=== PATIENT | female | born 1930 | race Caucasian/White ===

== ENCOUNTER 2016-04-29 10:23 | Outpatient (CLI) | payer MEDICARE, OTHER | END 2016-04-29 10:24 | disposition home or self-care (01) | DX: R19.7 Diarrhea, unspecified (principal); M54.9 Dorsalgia, unspecified; R10.9 Unspecified abdominal pain ==

== ENCOUNTER 2016-09-11 17:02 | Outpatient (CLI) | payer MEDICARE, OTHER ==
--- NOTE | 2016-09-12 16:31 | Ultrasound Report ---
EXAM: Bilateral Lower Extremity Arterial Doppler Ultrasound EXAM DATE: 09/11/2016 06:37 PM. CLINICAL HISTORY: Decreased sensation with coldness in both feet. Patient has hyperlipidemia. COMPARISON: None. TECHNIQUE: Real-time sonographic vascular imaging was performed by the environmental conflict manager, utilizing color-f low, Doppler flow, and spectral analysis. Multiple architectural representative static images were saved for review . FINDINGS: Velocity measurements suggest 50-75% stenoses of the bilateral superficial femoral arteries . Right Lower Extremity: PROSTHETIC LAB TECHNICIAN: PSV 140 cm/sec. Biphasic waveform. PSFA: PSV 170 cm/sec. Biphasic waveform. MSFA: PSV 59 cm/sec. Biphasic waveform. DSFA: PSV 151 cm/sec. Biphasic waveform. PFA: PSV 101 cm/sec. Biphasic waveform. POP: PSV 123 cm/sec. Biphasic waveform. EFFIE: PSV 52 cm/sec. Biphasic waveform. AGILITY INSTRUCTOR: PSV 22 cm/sec Biphasic waveform. YEIMI: PSV 14 cm/sec. Biphasic waveform. DPA: PSV 71 cm/sec. Biphasic waveform. Left Lower Extremity: PROSTHETIC LAB TECHNICIAN: PSV 109 cm/sec. Biphasic waveform. PSFA: PSV 72 cm/sec. Biphasic waveform. MSFA: PSV 35 cm/sec. Biphasic waveform. DSFA: PSV 201 cm/sec. Monophasic waveform. PFA: PSV 120 cm/sec. Biphasic waveform. POP: PSV 60 cm/sec. Biphasic waveform. EFFIE: PSV 24 cm/sec. Monophasic waveform. AGILITY INSTRUCTOR: PSV 19 cm/sec Monophasic waveform. YEIMI: PSV 11 cm/sec. Monophasic waveform. DPA: PSV 60 cm/sec. Monophasic waveform. Incidentally noted are large right and small left popliteal cysts in the posterior knees. IMPRESSION: 1. Mildly decreased velocities in the bilateral posterior tibial and peroneal arteries. 2. 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 [facility] Referring Provider Line: [phone] SITE ID: [id number]
== END 2016-09-11 17:03 | disposition home or self-care (01) ==
LOC: DI 17:02
PROVIDERS: ATTEND Family Medicine
DX: I70.203 Unspecified atherosclerosis of native arteries of extremities, bilateral legs (principal)
CPT/HCPCS: 93925

== ENCOUNTER 2016-10-16 09:38 | Outpatient (CLI) | payer MEDICARE, OTHER ==
[2016-10-16] MEDS ORDERED: IOPAMIDOL-300 100 ML VIAL IVP ONE (11:36)
[2016-10-16] MEDS ORDERED: IOPAMIDOL-300 50 ML VIAL PO ONE (11:36)
--- NOTE | 2016-10-16 14:14 | CT Report ---
CT OF THE ABDOMEN AND PELVIS WITH CONTRAST: 10/16/2016 CLINICAL INDICATION: Recurrent liposarcoma. COMPARISON: 12/27/2015. TECHNIQUE: Axial CT images of the abdomen and pelvis were obtained with 100 mL of Isovue-300 intraven ously as well as oral contrast. FINDINGS: Limited evaluation of the lung bases demonstrates minimal atelectasis. ABDOMEN: The heterogeneous fat and soft tissue mass in the right flank persists, measuring approximat shahzad 16 cm craniocaudal by 11 cm AP by 5 cm transverse. It again demonstrates nodular enhancement, yusra ecially along its medial margin and superior margin. The liver, spleen, pancreas and adrenal glands a ppear unremarkable. The kidneys demonstrate cortical cysts. The gallbladder is not dilated. No bowel dilatation, free gas, or free fluid is present. No abdominal adenopathy is seen. PELVIS: Postoperative changes of hysterectomy are present. Extensive diverticulosis is again seen, wi thout CT evidence of diverticulitis. No pelvic adenopathy or free fluid is present. The osseous structures demonstrate degenerative changes. IMPRESSION: SLIGHT INTERVAL INCREASE IN SIZE OF LIKELY RECURRENT LIPOSARCOMA IN THE RIGHT LATERAL AB DOMINAL WALL, NOW MEASURING 16 X 11 X 5 CM (PREVIOUSLY 15 X 11 X 4 CM AT A SIMILAR LEVEL). In accordance with CT protocol optimization, one or more of the following dose reduction techniques w ere utilized for this exam: automated exposure control, adjustment of mA and/or KV based on patient size, or use of iterative reconstructive technique. JOB #: [id number] EXT JOB #:[id number]
== END 2016-10-16 09:39 | disposition home or self-care (01) ==
LOC: LAB 09:38
PROVIDERS: ATTEND Radiology Radiation Oncology
DX: C76.8 Malignant neoplasm of other specified ill-defined sites (principal)
CPT/HCPCS: 36415; 74177; 82565; Q9967

== ENCOUNTER 2016-10-24 13:36 | Outpatient (CLI) | payer MEDICARE, OTHER | END 2016-10-24 13:37 | disposition critical access hospital (66) | LOC: EMS 13:36 | PROVIDERS: ATTEND Surgery | DX: R10.9 Unspecified abdominal pain (principal); R19.7 Diarrhea, unspecified; R11.0 Nausea | CPT/HCPCS: A0425; A0427 ==

== ENCOUNTER 2016-10-24 13:53 | Emergency (ER) | payer MEDICARE, OTHER ==
[2016-10-24] MEDS ORDERED: SODIUM CHLORIDE 0.9% 1,000 ML IV ONE ×2 (14:14→17:18)
[2016-10-24] MEDS ORDERED: ONDANSETRON 4 MG/2 ML VIAL IVP STA (14:14)
[2016-10-24 14:38] LABS: BASOPHILS # (AUTO) 0.3 10^3/uL (0.0-0.1); BASOPHILS % (AUTO) 3.6 %; EOSINOPHILS % (AUTO) 0.2 %; HCT - HEMATOCRIT 43.9 % (37.0-47.0); HGB - HEMOGLOBIN 14.5 g/dL (12.0-16.0); LYMPHOCYTES # (AUTO) 0.2 10^3/uL (1.5-3.5); LYMPHOCYTES % (AUTO) 2.8 %; MEAN CORPUSCULAR HEMOGLOBIN 28.5 pg (27.0-31.0); MEAN CORPUSCULAR HGB CONC 33.1 g/dL (32.0-36.0); MEAN CORPUSCULAR VOLUME 86.2 fL (81.0-99.0); MEAN PLATELET VOLUME 8.1 fL (7.9-10.8); MONOCYTES # (AUTO) 0.1 10^3/uL (0.0-1.0); MONOCYTES % (AUTO) 0.9 %; NEUTROPHILS # (AUTO) 7.1 10^3/uL (1.5-6.6); NEUTROPHILS % (AUTO) 92.5 %; RED BLOOD COUNT 5.09 10^6/uL (4.20-5.40); RED CELL DISTRIBUTION WIDTH 15.4 % (12.0-15.0); UNCORRECTED WHITE BLOOD COUNT 7.7 x10^3/uL; WHITE BLOOD COUNT 7.7 x10^3/uL (4.8-10.8)
[2016-10-24 14:46] LABS: ALBUMIN/GLOBULIN RATIO 1.6 (1.0-2.2); BILIRUBIN,TOTAL 0.9 mg/dL (0.2-1.0); CALCIUM 10.6 mg/dL (8.5-10.3); CREATININE 1.1 mg/dL (0.4-1.0); POTASSIUM 4.6 mmol/L (3.5-5.0); TOTAL PROTEIN 7.4 g/dL (6.7-8.2)
[2016-10-24] MEDS ORDERED: ONDANSETRON 4 MG/2 ML VIAL ONE (15:24)
[2016-10-24 17:11] LABS: BILIRUBIN,URINE NEGATIVE (NEGATIVE)
[2016-10-24 17:16] LABS: UA w/ MICROSCOPIC CHARGE YES
[2016-10-24 17:21] LABS: UR CULTURE IF IND INDICATED
[2016-10-24] MEDS ORDERED: cefTRIAXone 1 GM in SODIUM CHLORIDE 0.9% MINIBAG 100 ML IV STA (17:25)
[2016-10-24] MEDS ORDERED: cefTRIAXone 1 GM VIAL ONE (17:26)
--- NOTE | 2016-10-24 18:20 | ED Physician Documentation ---
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 She has developed some constipation and today she used some milk of magnesia. This caused major diarrhea continued for hours this morning. The patient has become weak and has called 911. Review of Systems Constitutional: reports: Myalgias, Fatigue. denies: Fever Eyes: denies: Decreased vision Ears: denies: Ear pain Nose: denies: Congestion Throat: denies: Sore throat Cardiac: denies: Chest pain / pressure Respiratory: denies: Dyspnea, Cough GI: reports: Abdominal Pain, Nausea, Diarrhea : denies: Dysuria, Frequency Skin: denies: Rash Musculoskeletal: reports: Back pain. denies: Neck pain Neurologic: reports: Generalized weakness. 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 - Present Medications Home Medications: Ambulatory Orders Medication Instructions Recorded Confirmed Biotin 1 cap PO DAILY 12/27/15 12/27/15 Cholecalciferol (Vitamin D3) 2,000 unit PO DAILY 12/27/15 12/27/15 [Vitamin D3] Hydrocodone/Acetaminophen [Vicodin 1 tab PO Q6HR PRN 12/27/15 12/27/15 5-300 mg Tablet] Ibuprofen [Advil] 1 tab PO QPM PRN 12/27/15 12/27/15 Latanoprost 0.005% Ophth Drops 1 drop EACHEYE DAILY 12/27/15 12/27/15 [Xalatan Ophth Drops] Multivitamin [Multivitamins] 1 tab PO DAILY 12/27/15 12/27/15 [place]-3/Dha/Epa/Fish Oil [Fish Oil 1 cap PO DAILY 12/27/15 12/27/15 Conc 1,000 mg Softgel] Timolol 0.5% Ophth Drops [Timoptic 1 drop EACHEYE QID 12/27/15 12/27/15 0.5% Ophth Drops] Ciprofloxacin HCl [Cipro] 500 mg PO BID #14 tablet 10/24/16 - Allergies Allergies/Adverse Reactions: Allergies Allergy/AdvReac Type Severity Reaction Status Date / Time codeine [Codeine] Allergy Intermediate Nausea Verified 12/27/15 20:04 acetazolamide Allergy Mild Hallucinati Verified 12/27/15 20:04 [From Diamox Sequels] ons povidone-iodine Allergy Mild Rash Verified 12/27/15 20:04 [From Betadine] soap * [From Betadine] Allergy Mild Rash Verified 12/27/15 20:04 chlorhexidine Allergy Unknown Rash Verified 12/27/15 20:04 Sulfa (Sulfonamide Allergy Unknown Rash Verified 12/27/15 20:04 Antibiotics) cephalexin monohydrate * Allergy Rash Verified 12/27/15 20:04 [From Keflex] oxycodone AdvReac Hallucinati Verified 12/27/15 20:04 ons - Social History Does the pt smoke?: No Smoking Status: Never smoker Does the pt drink ETOH?: Yes Does the pt have substance abuse?: No - Immunizations Immunizations are current?: No Immunizations: TDAP >10years/unknown - POLST Patient has POLST: Yes POLST Status: DNR PD ED PE NORMAL - Vitals Vital signs reviewed: Yes (Hypertensive) - General General: No acute distress, Well developed/nourished - HEENT HEENT: Atraumatic, PERRL, EOMI - Neck Neck: Supple, no meningeal sign, No bony TTP - Cardiac Cardiac: RRR, No murmur - Respiratory Respiratory: No respiratory distress, Clear bilaterally - Abdomen Abdomen: Soft, Other (There is a mass in the right abdominal abdomen that is palpable and is mildly tender the overlying skin appears radiation burned. There is no specific tenderness otherwise.) - Back Back: No CVA TTP, No spinal TTP - Derm Derm: Normal color, Warm and dry, No rash - Extremities Extremities: No deformity, No edema - Neuro Neuro: No motor deficit, No sensory deficit - Psych Psych: Normal mood, Normal affect Results - Vitals Vitals: Vital Signs - 24 hr 10/24/16 10/24/16 13:57 16:49 Temperature 36.3 C L Heart Rate 82 80 Respiratory 18 20 Rate Blood Pressure 162/84 H 158/85 H O2 Saturation 97 96 Oxygen O2 Source [Without Activity] Room air O2 Source Room air - Labs Labs: Laboratory Tests 10/24/16 10/24/16 10/24/16 14:15 14:15 14:15 WBC 7.7 RBC 5.09 Hgb 14.5 Hct 43.9 MCV 86.2 MCH 28.5 MCHC 33.1 RDW 15.4 H Plt Count 203 MPV 8.1 Neut # 7.1 H Lymph # 0.2 L [place] # 0.1 Eos # 0.0 Baso # 0.3 H Absolute Nucleated RBC 0.00 Nucleated RBCs 0.0 Sodium 137 Potassium 4.6 Chloride 100 L Carbon Dioxide 28 Anion Gap 9.0 BUN 32 H Creatinine 1.1 H Estimated GFR (MDRD) 47 L Glucose 121 H Calcium 10.6 H Total Bilirubin 0.9 AST 28 ALT 25 Alkaline Phosphatase 85 Troponin I < 0.04 Total Protein 7.4 Albumin 4.5 Globulin 2.9 Albumin/Globulin Ratio 1.6 Lipase 38 Urine Color Urine Clarity Urine pH Ur Specific [place] Urine Protein Urine Glucose (UA) Urine Ketones Urine Occult Blood Urine Nitrite Urine Bilirubin Urine Urobilinogen Ur Leukocyte Esterase Urine RBC Urine WBC Ur Squamous Epith Cells Urine Bacteria Ur Microscopic Review Urine Culture Comments 10/24/16 17:04 WBC RBC Hgb Hct MCV MCH MCHC RDW Plt Count MPV Neut # Lymph # [place] # Eos # Baso # Absolute Nucleated RBC Nucleated RBCs Sodium Potassium Chloride Carbon Dioxide Anion Gap BUN Creatinine Estimated GFR (MDRD) Glucose Calcium Total Bilirubin AST ALT Alkaline Phosphatase Troponin I Total Protein Albumin Globulin Albumin/Globulin Ratio Lipase Urine Color YELLOW Urine Clarity HAZY Urine pH 7.0 Ur Specific [place] 1.010 Urine Protein NEGATIVE Urine Glucose (UA) NEGATIVE Urine Ketones NEGATIVE Urine Occult Blood MODERATE H Urine Nitrite NEGATIVE Urine Bilirubin NEGATIVE Urine Urobilinogen 0.2 (NORMAL) Ur Leukocyte Esterase SMALL H Urine RBC 6-10 H Urine WBC 11-25 H Ur Squamous Epith Cells NONE SEEN Urine Bacteria Few Ur Microscopic Review INDICATED Urine Culture Comments INDICATED Procedures - IVC sono (time) 1410 Bedside IVC sono: IVC measures (cm) (0.83), IVC collapsed c insp (cm) (complete) , Dehydration PD MEDICAL DECISION MAKING - ED course Complexity details: reviewed old records, reviewed results, re-evaluated patient , considered differential, d/w patient, d/w family ED course: 85-year-old female being treated for an abdominal sarcoma with radiation therapy has developed constipation related to her narcotic pain reliever which she has now stopped and she has developed diarrhea related to treatment for the constipation with milk of magnesia. She arrived to the emergency department dehydrated and intravenous saline was begun and the urine was collected this demonstrated what appeared to be infection and the patient was given a gram of Rocephin intravenously as well.She does feel that she is strong enough to be able to control herself at home and be able to get up from her bed by herself and to her bathroom. Her son will be visiting her tomorrow. Departure - Departure Disposition: 01 Home, Self Care Clinical Impression: Dehydration UTI (urinary tract infection) Qualifiers: Urinary tract infection type: acute cystitis Hematuria presence: without hematuria Qualified Code(s): N30.00 - Acute cystitis without hematuria Diarrhea Qualifiers: Diarrhea type: unspecified type Qualified Code(s): R19.7 - Diarrhea, unspecified Condition: Stable Instructions: ED Dehydration, ED UTI Cystitis Female, ED Diet Vomiting Diarrhea Follow-Up: Vickey Roach DO [Primary Care Provider] - Prescriptions: Ciprofloxacin HCl [Cipro] 500 mg PO BID #14 tablet
[2016-10-24 18:54] VITALS: BP 144/84
== END 2016-10-24 18:52 | disposition home or self-care (01) ==
LOC: EDUNIT# → ED 13:53
DX: E86.0 Dehydration (principal); N30.00 Acute cystitis without hematuria; R19.7 Diarrhea, unspecified; C76.2 Malignant neoplasm of abdomen; I10 Essential (primary) hypertension; J45.909 Unspecified asthma, uncomplicated; Z86.010 Personal history of colon polyps; M19.90 Unspecified osteoarthritis, unspecified site
CPT/HCPCS: 36415; 51701; 80053; 81001; 81003; 83690; 84484; 85025; 87045; 87046; 87077; 87086; 87493; 96361; 96374; 96375; 99284

== ENCOUNTER 2017-02-22 10:23 | Emergency (ER) | payer MEDICARE, OTHER ==
[2017-02-22 11:26] LABS: BASOPHILS # (AUTO) 0.1 10^3/uL (0.0-0.1); BASOPHILS % (AUTO) 1.2 %; EOSINOPHILS # (AUTO) 0.1 10^3/uL (0.0-0.7); EOSINOPHILS % (AUTO) 2.1 %; HCT - HEMATOCRIT 44.6 % (37.0-47.0); LYMPHOCYTES # (AUTO) 0.6 10^3/uL (1.5-3.5); LYMPHOCYTES % (AUTO) 9.5 %; MEAN CORPUSCULAR HEMOGLOBIN 29.2 pg (27.0-31.0); MEAN CORPUSCULAR HGB CONC 33.7 g/dL (32.0-36.0); MEAN CORPUSCULAR VOLUME 86.7 fL (81.0-99.0); MEAN PLATELET VOLUME 8.5 fL (7.9-10.8); MONOCYTES # (AUTO) 0.4 10^3/uL (0.0-1.0); MONOCYTES % (AUTO) 6.7 %; NEUTROPHILS # (AUTO) 5.4 10^3/uL (1.5-6.6); NEUTROPHILS % (AUTO) 80.5 %; RED BLOOD COUNT 5.14 10^6/uL (4.20-5.40); RED CELL DISTRIBUTION WIDTH 14.2 % (12.0-15.0); UNCORRECTED WHITE BLOOD COUNT 6.7 x10^3/uL; WHITE BLOOD COUNT 6.7 x10^3/uL (4.8-10.8)
--- NOTE | 2017-02-22 11:27 | ED Physician Documentation ---
PD HPI ABD PAIN - Stated complaint Stated Complaint: BACK/ABD PX - Chief complaint Chief Complaint: Abd Pain - History obtained from History obtained from: Patient - History of Present Illness Timing - onset: How many months ago (2 months of pain in right lower abd since radiation ended. Has had surgery to remove liposarcomas in the past as well.) Timing - duration: Months (2) Timing - details: Gradual onset, Still present, Waxing and waning Quality: Cramping, Aching, Pain Radiation: Lower back, Other (not to the leg), Right flank Improved by: Position Worsened by: Eating, Moving, Position, Palpation. No: Breathing Associated symptoms: No: Fever, Nausea (but has easy satiety with eating), Vomiting, Diarrhea, Constipation, Melena, Near syncope / syncope Similar symptoms before: No diagnosis Review of Systems Constitutional: denies: Fever, Chills Nose: denies: Rhinorrhea / runny nose, Congestion Throat: denies: Sore throat Cardiac: denies: Chest pain / pressure, Palpitations Respiratory: denies: Dyspnea, Cough GI: reports: Abdominal Pain, Nausea. 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 - Present Medications Home Medications: Ambulatory Orders Medication Instructions Recorded Confirmed Biotin 1 cap PO DAILY 12/27/15 02/22/17 Cholecalciferol (Vitamin D3) 4,000 unit PO DAILY 12/27/15 02/22/17 [Vitamin D3] Ibuprofen [Advil] 1 tab PO QPM PRN 12/27/15 02/22/17 Latanoprost 0.005% Ophth Drops 1 drop EACHEYE DAILY 12/27/15 02/22/17 [Xalatan Ophth Drops] [place]-3/Dha/Epa/Fish Oil [Fish Oil 1 cap PO DAILY 12/27/15 02/22/17 Conc 1,000 mg Softgel] Timolol 0.5% Ophth Drops [Timoptic 1 drop EACHEYE QID 12/27/15 02/22/17 0.5% Ophth Drops] Ondansetron [Ondansetron Odt] 8 mg PO TID PRN 11/12/16 02/22/17 Multivitamin/Iron/Folic Acid 1 tab PO DAILY 02/10/17 02/22/17 [Centrum Adults Tablet] Aspirin [Adult Low Dose Aspirin EC] 81 mg PO DAILY 02/22/17 02/22/17 Naproxen 375 mg PO BID #20 tablet 02/22/17 Ondansetron Odt [Zofran] 4 mg TL Q6H PRN #15 tablet 02/22/17 Simvastatin 5 mg PO DAILY 02/22/17 02/22/17 Tramadol HCl 50 mg PO Q6H PRN #20 tablet 02/22/17 - Allergies Allergies/Adverse Reactions: Allergies Allergy/AdvReac Type Severity Reaction Status Date / Time acetazolamide Allergy Mild Hallucinati Verified 02/22/17 10:42 [From Diamox Sequels] ons povidone-iodine Allergy Mild Rash Verified 02/22/17 10:42 [From Betadine] soap * [From Betadine] Allergy Mild Rash Verified 02/22/17 10:42 chlorhexidine Allergy Unknown Rash Verified 02/22/17 10:42 Sulfa (Sulfonamide Allergy Unknown Rash Verified 02/22/17 10:42 Antibiotics) codeine [Codeine] AdvReac Intermediate Nausea Verified 02/22/17 10:42 oxycodone AdvReac Hallucinati Verified 02/22/17 10:42 ons - Social History Does the pt smoke?: No Smoking Status: Never smoker Does the pt drink ETOH?: Yes Does the pt have substance abuse?: No - Immunizations Immunizations are current?: No Immunizations: TDAP >10years/unknown - POLST Patient has POLST: Yes POLST Status: DNR PD ED PE NORMAL - Vitals Vital signs reviewed: Yes - General General: Alert and oriented X 3, Well developed/nourished, Other (appears in pain right abdomen.) - HEENT HEENT: Moist mucous membranes, Pharynx benign - Neck Neck: Supple, no meningeal sign, No adenopathy - Cardiac Cardiac: RRR, No murmur - Respiratory Respiratory: Clear bilaterally - Abdomen Abdomen: Normal bowel sounds, Soft, Non distended, No organomegaly, Other ( scarring noted right side. Tender right abdomen mid and lower/lateral. No rash nor redness. No sores. ) - Female Female : Deferred - Rectal Rectal: Deferred - Back Back: No CVA TTP, No spinal TTP - Derm Derm: Normal color, Warm and dry, No rash Results - Vitals Vitals: Vital Signs - 24 hr 02/22/17 02/22/17 02/22/17 13:23 14:25 14:43 Heart Rate 54 L 45 L 56 L Respiratory 16 15 15 Rate Blood Pressure 198/78 H 189/77 H 186/78 H O2 Saturation 97 97 94 Oxygen O2 Source [Without Activity] Room air O2 Source Room air - Labs Labs: Laboratory Tests 02/22/17 02/22/17 02/22/17 11:05 11:05 14:15 WBC 6.7 RBC 5.14 Hgb 15.0 Hct 44.6 MCV 86.7 MCH 29.2 MCHC 33.7 RDW 14.2 Plt Count 179 MPV 8.5 Neut # 5.4 Lymph # 0.6 L [place] # 0.4 Eos # 0.1 Baso # 0.1 Absolute Nucleated RBC 0.00 Nucleated RBC % 0.0 Sodium 138 Potassium 3.9 Chloride 102 Carbon Dioxide 27 Anion Gap 9.0 BUN 19 Creatinine 0.9 Estimated GFR (MDRD) 59 L Glucose 110 H Calcium 10.5 H Total Bilirubin 0.3 AST 21 ALT 16 Alkaline Phosphatase 80 Total Protein 7.1 Albumin 4.4 Globulin 2.7 Albumin/Globulin Ratio 1.6 Lipase 37 Urine Color YELLOW Urine Clarity CLEAR Urine pH 7.5 Ur Specific [place] 1.015 Urine Protein NEGATIVE Urine Glucose (UA) NEGATIVE Urine Ketones NEGATIVE Urine Occult Blood NEGATIVE Urine Nitrite NEGATIVE Urine Bilirubin NEGATIVE Urine Urobilinogen 0.2 (NORMAL) Ur Leukocyte Esterase NEGATIVE Ur Microscopic Review NOT INDICATED Urine Culture Comments NOT INDICATED PD MEDICAL DECISION MAKING - ED course Complexity details: reviewed results, considered differential (not sure of cause of the pain. No obvious findings on testing/exam. She has the liposarcoma on that side, so it could be causing some adhesion stretching or nerve impingement. Lumbar canal stenosis noted on CT but not having leg/sacral type symptoms. ), d/w patient Departure - Departure Disposition: 01 Home, Self Care Clinical Impression: Right sided abdominal pain Condition: Stable Record reviewed to determine appropriate education?: Yes Instructions: ED Abdominal Pain Unkn Cause Follow-Up: Vickey Roach DO [Primary Care Provider] - Prescriptions: Naproxen 375 mg PO BID #20 tablet Ondansetron Odt [Zofran] 4 mg TL Q6H PRN #15 tablet PRN Reason: Nausea / Vomiting Tramadol HCl 50 mg PO Q6H PRN #20 tablet PRN Reason: Pain Comments: The CT scan did not show significant change from the from October 16. There is still liposarcoma present on that side. He could potentially be causing some inflammation or pressure that is hurting. There is no signs of kidney stones or blockages or internal bleeding or other more significant problems. There is some nerve outlet tightness in the lumbar spine and so could consider the idea of a pinched nerve causing pain as well. However your pattern suggests more of intestinal pain with the worsening on eating and movement. Continue your stool softener. Use different anti-inflammatory of naproxen twice daily. Use ondansetron if needed for nausea. Add Tylenol or tramadol for pain. See if this helps with the pain without causing any nausea or side effects. Follow-up with your primary care this week, call for an appointment. Discharge Date/Time: 02/22/17 14:50
[2017-02-22 11:39] LABS: ALBUMIN/GLOBULIN RATIO 1.6 (1.0-2.2); BILIRUBIN,TOTAL 0.3 mg/dL (0.2-1.0); CALCIUM 10.5 mg/dL (8.5-10.3); CREATININE 0.9 mg/dL (0.4-1.0); POTASSIUM 3.9 mmol/L (3.5-5.0); TOTAL PROTEIN 7.1 g/dL (6.7-8.2)
[2017-02-22] MEDS ORDERED: SODIUM CHLORIDE 0.9% 1,000 ML IV ONE (12:04)
[2017-02-22] MEDS ORDERED: ONDANSETRON 4 MG/2 ML VIAL IVP STA ×2 (12:04→14:01)
[2017-02-22] MEDS ORDERED: KETOROLAC 60 MG/2 ML VIAL IVP STA (12:04)
[2017-02-22] MEDS ORDERED: HYDROmorphone 1 MG/ML SYRINGE IVP STA (12:04)
[2017-02-22] MEDS ORDERED: IOPAMIDOL-300 100 ML VIAL ONE (12:12)
[2017-02-22] MEDS ORDERED: HYDROmorphone 1 MG/ML SYRINGE ONE (12:22)
[2017-02-22] MEDS ORDERED: KETOROLAC 30 MG/ML VIAL ONE (12:22)
[2017-02-22] MEDS ORDERED: ONDANSETRON 4 MG/2 ML VIAL ONE ×2 (12:22→14:13)
[2017-02-22] MEDS ORDERED: IOPAMIDOL-300 100 ML VIAL IVP ONE (12:56)
--- NOTE | 2017-02-22 13:26 | CT Report ---
EXAM: CT ABDOMEN AND PELVIS EXAM DATE: 02/22/2017 12:38 PM. CLINICAL HISTORY: Right abd/pelvic pain for days. COMPARISONS: CT abdomen and pelvis 10/16/2016. TECHNIQUE: Routine helical CT imaging was performed through the abdomen and pelvis. IV contrast: 100M L OF ISOVUE 300. Enteric contrast: No. Reconstructions: Coronal and sagittal. In accordance with CT protocol optimization, one or more of the following dose reduction techniques w ere utilized for this exam: automated exposure control, adjustment of mA and/or KV based on patient s ize, or use of iterative reconstructive technique. FINDINGS: Lung Bases: Small amount of fibrotic change at the bases. Liver: Normal. No masses. Gallbladder/Bile Ducts: Unremarkable. Spleen: Normal. Pancreas: Normal. Adrenal Glands: Normal. Kidneys: Small renal cysts. No enhancing solid mass. No hydronephrosis. Peritoneal Cavity/Bowel: Small hiatal hernia. Colonic diverticulosis. Pelvic Organs: Hysterectomy. Vasculature: Circumaortic left renal vein. Bones: Total left hip arthroplasty. Osteopenia. Severe lumbar facet degenerative arthropathy. Severe spinal canal narrowing at L3/L4 with disk osteophyte complex, facet hypertrophic degenerative changes and ligament of flavum hypertrophy Other: Pelvic wall scarring. Right flank soft tissue and fat containing masslike structure with decreased surrounding inflammation . IMPRESSION: 1. No acute findings in the abdomen or pelvis 2. Small hiatal hernia 3. Colonic diverticulosis 4. Fat and soft tissue attenuating masslike structure along the right flank with decreased surroundin g edema, uncertain etiology. Liposarcoma possible. 5. Severe spinal canal stenosis at L3/L4 [facility] Referring Provider Line: [phone] SITE ID: [id number]
[2017-02-22 14:29] LABS: BILIRUBIN,URINE NEGATIVE (NEGATIVE); PH,URINE 7.5 PH (5.0-7.5)
[2017-02-22 14:30] LABS: UA CHARGE (STRIP ONLY) YES; UR CULTURE IF IND NOT INDICATED
[2017-02-22 16:31] VITALS: BP 186/78
== END 2017-02-22 14:50 | disposition home or self-care (01) ==
LOC: ED 10:23
DX: R10.31 Right lower quadrant pain (principal); I10 Essential (primary) hypertension; J45.909 Unspecified asthma, uncomplicated; M19.90 Unspecified osteoarthritis, unspecified site; Z86.010 Personal history of colon polyps
CPT/HCPCS: 36415; 74177; 80053; 81003; 83690; 85025; 96361; 96374; 96375; 99283; 99284; J1170; Q9967; 81001; 87086

== ENCOUNTER 2017-03-11 11:00 | Outpatient (CLI) | payer MEDICARE, OTHER ==
--- NOTE | 2017-03-11 20:02 | CONSULTATION NOTE ---
Palliative Care Follow Up - Referral Referring Provider: Dr Vickey Roach Time of Visit: 11:00 Referral setting: Home (Seen in home setting due to taxing and considerable effort required to leave the home due to significant fatigue and problems ambulating secondary to radiation effects and liposarcoma.) - Information Sources Records reviewed: Previous records reviewed History/Review of Systems obtained from: Patient, Family Exam limitations: No limitations - History of Present Illness Update Brief HPI Update: This is an 86-year-old woman initially diagnosed with right flank liposarcoma in 1994, which was resected by Dr Coates at [facility]. The mass extended into her R groin/pelvic area at the time. The tumor came back around [id number] and was removed by Dr Priyanka Coy. The next recurrence was in 2013, again removed by Dr. Coy. No adjuvant radiation or chemotherapy were recommended at that time. In Dec 2015, a CT scan of the pelvis/abdomen revealed a 7.7cm x 11.5cm mass with possible intra-abdominal extension. Resection was not recommended, and she was referred to Dr Tracey for palliative radiation which was completed in September 2016. Social History - Living Situation Living arrangement: At home Living Situation: With family (daughter, Julia Mccartney) Medications/Allergies - Medications Home Medications: Ambulatory Orders Medication Instructions Recorded Confirmed Biotin 1 cap PO DAILY 12/27/15 02/22/17 Cholecalciferol (Vitamin D3) 4,000 unit PO DAILY 12/27/15 02/22/17 [Vitamin D3] Ibuprofen [Advil] 1 tab PO QPM PRN 12/27/15 02/22/17 Latanoprost 0.005% Ophth Drops 1 drop EACHEYE DAILY 12/27/15 02/22/17 [Xalatan Ophth Drops] [place]-3/Dha/Epa/Fish Oil [Fish Oil 1 cap PO DAILY 12/27/15 02/22/17 Conc 1,000 mg Softgel] Timolol 0.5% Ophth Drops [Timoptic 1 drop EACHEYE QID 12/27/15 02/22/17 0.5% Ophth Drops] Ondansetron [Ondansetron Odt] 8 mg PO TID PRN 11/12/16 02/22/17 Multivitamin/Iron/Folic Acid 1 tab PO DAILY 02/10/17 02/22/17 [Centrum Adults Tablet] Aspirin [Adult Low Dose Aspirin EC] 81 mg PO DAILY 02/22/17 02/22/17 Naproxen 375 mg PO BID #20 tablet 02/22/17 Ondansetron Odt [Zofran] 4 mg TL Q6H PRN #15 tablet 02/22/17 Simvastatin 5 mg PO DAILY 02/22/17 02/22/17 Tramadol HCl 50 mg PO Q6H PRN #20 tablet 02/22/17 - Allergies Allergies/Adverse Reactions: Allergies Allergy/AdvReac Type Severity Reaction Status Date / Time acetazolamide Allergy Mild Hallucinati Verified 02/22/17 10:42 [From Diamox Sequels] ons povidone-iodine Allergy Mild Rash Verified 02/22/17 10:42 [From Betadine] soap * [From Betadine] Allergy Mild Rash Verified 02/22/17 10:42 chlorhexidine Allergy Unknown Rash Verified 02/22/17 10:42 Sulfa (Sulfonamide Allergy Unknown Rash Verified 02/22/17 10:42 Antibiotics) codeine [Codeine] AdvReac Intermediate Nausea Verified 02/22/17 10:42 oxycodone AdvReac Hallucinati Verified 02/22/17 10:42 ons Impression and Recommendations - Palliative Care Impression: This is an 86-year-old woman initially diagnosed with right flank liposarcoma in 1994, with two subsequent recurrences and removals (in [id number] and 2013), and palliative radiation which completed in September 2016. Time Spent: 90 minutes were spent with more than 50% of the time spent on counseling, education, and coordination of care.
--- NOTE | 2017-03-11 23:13 | CONSULTATION NOTE ---
Palliative Care Consultation - Referral Referring Provider: Dr Vickye Roach Time of Visit: 11:00 Referral setting: Home (Seen in home setting due to taxing and considerable effort required to leave the home due to significant fatigue and limited mobility secondary to radiation treatment and liposarcoma) - Information Sources Records reviewed: Previous records reviewed History/Review of Systems obtained from: Patient, Family Exam limitations: No limitations - History of Present Illness Brief History of Present Illness: Thank you, Dr. Roach, for asking the palliative care consult service to be involved in the care of your patient. I am asked to provide support regarding medication, symptom management, and advanced care planning. This is an 86-year-old woman initially diagnosed with right flank liposarcoma in 1994, which was resected by Dr Coates at [facility]. The mass extended into her R groin/pelvic area at the time. The tumor came back around [id number] and was removed by Dr Priyanka Coy. The next recurrence was in 2013, again removed by Dr. Coy. No adjuvant radiation or chemotherapy were recommended at that time. In Dec [address] scan of the abdomen revealed a 7.7 x 11.5 cm mass with possible intra-abdominal extension. A 2.3 x 1.4 cm nodular component close to the hepatic flexure was highly suspicious for liposarcoma. She was referred to Dr Rios in Jan 2016 and resection was not recommended. She was then referred to Dr Tracey for radiation. She underwent 24 days of palliative radiation, completing it in September 2016. She had a follow up oncology consultation Nov 18, [address] Sellers, comparing her last scan prior to her radiation, in July 2016. Dr Sellers noted the mass seemed to have increased in size, but her pain was about the same and patient managed it with [address] Sellers did not recommend systemic chemotherapy for the local progression, and there was no evidence of metastatic disease. Dr Sellers recommended to watch expectantly. If the disease progresses significantly in the future, Dr Sellers would consider newer chemo agents such as TKI. She had a 3 month oncology follow up Feb 10, [address] Sellers who noted no clinical evidence of disease progression or recurrence currently. Dr Sellers plans to continue to watch her expectantly. If she has increased symptoms in the R flank, the plan is to repeat a CT scan for further evaluation. As for her dizziness, Dr Sellers doubts there is intracranial metastases from the low-grade liposarcoma. The plan is for the patient to follow up with her PCP about the dizziness and also to follow up with Dr Sellers in oncology in 6 months (July or August 2016). Feb 22, 2017 she visited ED for back and abdominal (R lower quadrant), no obvious findings on testing and exam. Lumbar canal stenosis noted on CT but she had no leg/sacral symptoms. CT showed no significant change from the October 16, 2016 CT. They DC'd her recommending continuing stool softener and to use a different anti-inflammatory, naproxen, BID, and ondansetron for nausea. Suggested adding Tylenol or tramadol for pain and f/u with PCP. She is resistant to using opioids and pain medications in general. The patient's main complaint is how tired and fatigued she is all the time, and that she is unable to do anything. She is still able to do her own ADLs but it' s exhausting her. She is ambulatory around the house, but spends much time resting in her recliner. She also complains of dizziness, and says none of the physicians knows what is causing it. She used to be a highly active and independent person and now she finds she needs to rest all the time. She is also dependent on her daughter, Julia, who is living with her. She feels bad about this, reckoning that her daughter needs more independence and having a life separate from hers. She has an insurance policy that she has paid for for years and she thinks that it covers convalescence at home. Her daughter got out a thick stack of documents that was the policy and started sorting through it during the visit. The fatigue dates from the radiation, and she reports it is not getting any better. She had labs done 02/22/17 and almost all were within normal limits, though GFR is low (59) TSH was not run; it was 3.07 (normal) in 2013. No B12 or Vit D was run. She also reports an increase in memory issues, and unclear thinking. She is very articulate and interactive during this visit, but there are times she loses her train of though. She has no appetite and forces herself to eat. She has lost her sense of taste, probably about a year ago. Previous weight as 162 lbs; it is 140 lbs since the radiation treatment. She has occasional pain, often in the knees, but she is very sensitive to pain medications and does not like to be "woozy." She currently takes Advil when the pain becomes bad. She also lies down when its really bad, and her daughter says that's a "big deal" because that's very out of character for her. She has always been very active. She does complain of urge incontinence and is now wearing adult briefs. She has had lifelong constipation, she currently controls it with Miralax. The constipation is one reason why she does not like taking opioids. She admits that she doesn't drink enough fluids. Her 5 years ago and she admits she thinks she has been depressed since then. At one time she used sertraline and found that it helped, but then she stopped. Medical/Surgical History - Past Medical History Cardiovascular: reports: Hypertension Respiratory: reports: Asthma Neuro: reports: None, Motion sickness GI: reports: Colon polyps HEENT: reports: Glaucoma, Macular degeneration Psych: reports: Depression Musculoskeletal: reports: Osteoarthritis, Other (L hip fracture from fall at home) Derm: reports: None MRSA Hx?: No Other Past Medical History: Recurrent right flank liposarcoma - Past Surgical History General: reports: Cholecystectomy, Appendectomy, Other (two resections of liposarcoma. [id number] and 2013.) Ortho: reports: Hip replacement, Spine surgery /DOCK HAND: reports: Hysterectomy Social History - Living Situation Living arrangement: At home Living Situation: With family (daughter, Julia Mccartney) Support System: 5 years ago. Her daughter moved back in with her to provide help and care giving. Medications/Allergies - Medications Home Medications: Ambulatory Orders Medication Instructions Recorded Confirmed Biotin 1 cap PO DAILY 12/27/15 03/11/17 Cholecalciferol (Vitamin D3) 4,000 unit PO DAILY 12/27/15 03/11/17 [Vitamin D3] Ibuprofen [Advil] 1 tab PO QPM PRN 12/27/15 03/11/17 Latanoprost 0.005% Ophth Drops 1 drop EACHEYE DAILY 12/27/15 03/11/17 [Xalatan Ophth Drops] Timolol 0.5% Ophth Drops [Timoptic 1 drop EACHEYE QID 12/27/15 03/11/17 0.5% Ophth Drops] Ondansetron [Ondansetron Odt] 8 mg PO TID PRN 11/12/16 03/11/17 Multivitamin/Iron/Folic Acid 1 tab PO DAILY 02/10/17 03/11/17 [Centrum Adults Tablet] Aspirin [Adult Low Dose Aspirin EC] 81 mg PO DAILY 02/22/17 03/11/17 Simvastatin 5 mg PO DAILY 02/22/17 03/11/17 Tramadol HCl 50 mg PO Q6H PRN #20 tablet 02/22/17 03/11/17 Polyethylene Glycol 3350 [Miralax] 17 gm PO DAILY 03/11/17 03/11/17 Telmisartan 20 mg PO DAILY 03/11/17 03/11/17 Sertraline [Zoloft] 25 mg PO DAILY MDD for 8 days only 03/13/17 03/13/17 Sertraline [Zoloft] 50 mg PO DAILY 03/13/17 03/13/17 - Allergies Allergies/Adverse Reactions: Allergies Allergy/AdvReac Type Severity Reaction Status Date / Time acetazolamide Allergy Mild Hallucinati Verified 02/22/17 10:42 [From Diamox Sequels] ons povidone-iodine Allergy Mild Rash Verified 02/22/17 10:42 [From Betadine] soap * [From Betadine] Allergy Mild Rash Verified 02/22/17 10:42 chlorhexidine Allergy Unknown Rash Verified 02/22/17 10:42 Sulfa (Sulfonamide Allergy Unknown Rash Verified 02/22/17 10:42 Antibiotics) codeine [Codeine] AdvReac Intermediate Nausea Verified 02/22/17 10:42 oxycodone AdvReac Hallucinati Verified 02/22/17 10:42 ons Review of Systems - Constitutional Constitutional: reports: Fatigue (no improvement, ever since radiation), Poor appetite (has lost the sense of taste. forces herself to eat), Weight loss (20 lbs weight loss since last year. Formerly 162 lbs, now 140 lbs.) - Cardiovascular Cardiovascular: denies: Chest pain - Respiratory Respiratory: reports: Cough (for years, but improved recently). denies: SOB at rest, SOB with exertion - Gastrointestinal Gastrointestinal: reports: Constipation (chronic, since childhood. Has been hospitalized for it before), Nausea (occasionally, now improved), Poor appetite - Genitourinary Genitourinary: reports: Incontinence (urge). denies: Dysuria, Frequency - Musculoskeletal Musculoskeletal: reports: Other (Pain from OA and liposarcoma, but doesn't like pain meds and doesn't want to be woozy. Takes Advil occasionally) - Neurological Neurological: reports: Dizziness, Numbness (in lower extremities), Memory problems (worsening short-term memory) - Psychiatric Psychiatric: reports: Depression (ever since her 5 years ago) Physical Exam - Vital Signs Temperature: 98.2 F Pulse Rate: 60 O2 Saturation: 96 Blood Pressure: 182/88 - Physical Exam General Appearance: positive: No acute distress, Alert Eyes Bilateral: positive: EOMI, No lid inflammation, Conjunctivae nml, No scleral icterus ENT: positive: Dry mucous membranes Neck: positive: Thyroid nml, No JVD, Trachea midline Cardiovascular: positive: Regular rate & rhythm, No murmur, No gallop Respiratory: positive: Breath sounds nml Abdomen: positive: Non-tender, Soft, Abnml bowel sounds (hypoactive in lower quadrant) Skin: positive: Dryness Extremities: positive: No pedal edema Neurologic/Psychiatric: positive: Oriented x3, Motor nml, Sensation nml, Mood/ affect nml Palliative Care - POLST Patient has POLST: Yes POLST Status: DNR, Comfort Measures Pain: Pain unchanged, Comment (She is very sensitive to pain meds and won't take anything that makes her "woozy." She tolerates pain well, and uses Advil for relief) Tiredness/Fatigue: Severe (7-10) Drowsiness/Sedation: None Nausea: Mild (1-3) (Occasional; has calmed down recently) Anxiety: Moderate (4-6) (Ever since her ) Dyspnea: None Anorexia: Moderate (4-6) Sleep: Sleeps well Constipation: Yes (Lifelong), Managed Performance Status: Current level of functioning: Ambulatory around house, high fatigue level, no energy, gets exhausted doing ADLs and so will soon need more assistance with them, increased memory issues and unclear thinking which the patient recognizes is happening. Urge incontinence. Chronic constipation. Palliative Care Performance Status: - Palliative Care Discussion: Who is present: Patient, daughter Julia, myself Surrogate decision maker: Julia Mccartney, farrar [phone] (patient's home) Patient/Family understanding of the illness: Does have insight and understanding of the seriousness of patients current condition. Most important goals: She wants more energy and also wants to obtain outside care giving help, hopefully covered by her insurance policy. She wants her daughter to get a break and have some independent life apart from taking care of her. She has always been very capable and physically independent (eg, she and her built a large retaining wall, handling and placing the large chunks of concrete themselves). She wants to retain that as much as possible, even as she is getting less and less capable. Patient/family concerns: Patient would like relief and help with her fatigue. She admits she may be depressed, stemming from losing her 5 years ago. She also has chronic dizziness, etiology unknown. She has had numerous physicians say they do not know what is causing it. She has no appetite, has lost the sense of taste and has to force herself to eat. She has lost 20 lbs since radiation treatment. She is concerned about the burden of care being on her daughter, resulting in the daughter "having no life," and not being able to go out and enjoy herself once in awhile. She feels guilty about that. Pain control at this point is not a high priority for her. Her daughter says she has a "high tolerance" for pain. Also she is resistant to any medications because she easily becomes "woozy." Also there is the issue with opioid- induced constipation, on top of her chronic, lifelong constipation. Results - Lab Results Lab results reviewed: Yes Lab and Imaging Results: 02/22/2017: WBC 6.7 Hgb 15 Hct 44.6% Na 138 K+ 3.9 Cl 102 CO2 27 BUN 19 Cr 0.9 GFR 59 (low) TSH in 2013 is normal, 3.07. No Vit D, B12, TSH labs recently. Impression and Recommendations - Palliative Care Impression: This is an 86-year-old woman initially diagnosed with right flank liposarcoma in 1994, with two subsequent recurrences and removals (in [id number] and 2013), and 24 days of palliative radiation, completed in September 2016. She has had significant fatigue, dizziness, anorexia, and weight loss since then, with no improvement. Her daughter is her sole medicare specialist, and the patient is becoming more dependent on her, and so there is risk of caregiver burnout. Recommendations/Counseling Done: Liposarcoma: No evidence of progression of disease at last tests. Being followed by oncologist Dr Sellers. Last visit Feb 10, 2017, next visit in 6 months. Depression: Start sertraline 50mg tab, 1/2 tab (25mg) daily x 8 days, then 50mg daily ongoing. She used sertraline in the past to good effect. Will follow up in 2-3 weeks, though it takes usually 2-8 weeks to take full effect. Fatigue: Started sertraline which may help her fatigue Also consider Ritalin/ methylphenidate low dose: 5mg tab, use 2.5mg as needed. Anorexia/dysgeusia: Consider small dose of Decadron/dexamethasone steroid short term. She currently forces herself to eat Pain: knee and abdomen: So far she is able to control pain with Advil as needed. She has stopped hydrocodone in the past due to adverse effects. Constipation: Chronic, lifelong. Uses Miralax daily. Educated on increasing fluid intake, especially water, and increasing high fiber foods (fruit, vegetables). Currently controlled but monitor and add bowel softeners or stimulants as indicated. Advanced care planning: POLST signed and in place: DNR, comfort. Wants outside care giving help, and wants to use her long-time insurance policy to cover it. Referred her to Palliative Care social worker health services for resource help and support with this. Follow up 2-3 weeks for next appointment. Time Spent: 90 minutes were spent with more than 50% of the time spent on counseling, education, and coordination of care, and weighing burdens and benefits of interventions.
== END 2017-03-11 11:01 | disposition home or self-care (01) ==
LOC: PC 11:00
PROVIDERS: ATTEND Nurse Practitioner
DX: Z51.5 Encounter for palliative care (principal); Z85.89 Personal history of malignant neoplasm of other organs and systems; R42 Dizziness and giddiness; R53.83 Other fatigue; Z92.3 Personal history of irradiation; R63.0 Anorexia; I10 Essential (primary) hypertension; F32.9 Major depressive disorder, single episode, unspecified; R63.4 Abnormal weight loss; K59.09 Other constipation; Z66 Do not resuscitate; R43.2 Parageusia; R10.31 Right lower quadrant pain; M25.562 Pain in left knee; M25.561 Pain in right knee
CPT/HCPCS: 99345

== ENCOUNTER 2017-06-21 11:09 | Outpatient (CLI) | payer MEDICARE, OTHER | END 2017-06-21 11:10 | disposition critical access hospital (66) | LOC: EMS 11:09 | PROVIDERS: ATTEND Surgery | DX: R42 Dizziness and giddiness (principal); R11.2 Nausea with vomiting, unspecified | CPT/HCPCS: A0425; A0429 ==

== ENCOUNTER 2017-06-21 11:28 | Emergency (ER) | payer MEDICARE, OTHER ==
[2017-06-21] MEDS ORDERED: ONDANSETRON 4 MG/2 ML VIAL IVP STA (11:32)
[2017-06-21] MEDS ORDERED: SODIUM CHLORIDE 0.9% 1,000 ML IV ONE ×2 (11:32→12:37)
--- NOTE | 2017-06-21 11:41 | ED Physician Documentation ---
History of Present Illness - Stated complaint Stated Complaint: FLU SYMPTOMS - Additonal information Additional information: hx from pt and EMS86 female per pt hx of some sort of abdominal cancer she does not know the details or where she was treated - per EMR liopsarcoma s/p reesection X 2 most recent 2013 per EMS recently txed for sinus infection per pt long hx dizziness - not new she is BIBA today because she has upper abd pain and vomited clear brown liquid - no blood or coffee grounds no fever no diarrhea no bloody BM states hx same not sure what dx was does not think she has had endoscopy before per EMS daughter is coming with more info daughter arrived adds that pt had radiation tx to her cancer tray and that she has long standing R hip hip pain radiating down her leg and that he foot feels like a block of cement and the PMD has looked into it s diagnosis and the daughter gave the pt tramadol for this pain and thta caused her GI upset also she has a LINDSAY which is common for her when she is nauseated Review of Systems Constitutional: denies: Fever, Chills Cardiac: denies: Chest pain / pressure Respiratory: denies: Dyspnea GI: reports: Abdominal Pain, Nausea, Vomiting. denies: Hematemesis, Bloody / black stool Musculoskeletal: denies: Neck pain, Back pain Neurologic: denies: Generalized weakness Endocrine: denies: Easy bruising / bleeding Immunocompromised: denies: Immunocompromised PD PAST MEDICAL HISTORY - Past Medical History Cardiovascular: Hypertension Respiratory: Asthma Neuro: None, Motion sickness GI: Colon polyps HEENT: Glaucoma, Macular degeneration Psych: Depression Musculoskeletal: Osteoarthritis, Other (L hip fracture from fall at home) Derm: None - Past Surgical History Past Surgical History: Yes General: Cholecystectomy, Appendectomy, Other (two resections of liposarcoma. [id number] and 2013.) Ortho: Hip replacement, Spine surgery /UTILITY SPECIALIST: Hysterectomy - Present Medications Home Medications: Ambulatory Orders Medication Instructions Recorded Confirmed Biotin 1 cap PO DAILY 12/27/15 03/11/17 Cholecalciferol (Vitamin D3) 4,000 unit PO DAILY 12/27/15 03/11/17 [Vitamin D3] Ibuprofen [Advil] 1 tab PO QPM PRN 12/27/15 03/11/17 Latanoprost 0.005% Ophth Drops 1 drop EACHEYE DAILY 12/27/15 03/11/17 [Xalatan Ophth Drops] Timolol 0.5% Ophth Drops [Timoptic 1 drop EACHEYE QID 12/27/15 03/11/17 0.5% Ophth Drops] Ondansetron [Ondansetron Odt] 8 mg PO TID PRN 11/12/16 03/11/17 Multivitamin/Iron/Folic Acid 1 tab PO DAILY 02/10/17 03/11/17 [Centrum Adults Tablet] Aspirin [Adult Low Dose Aspirin EC] 81 mg PO DAILY 02/22/17 03/11/17 Simvastatin 5 mg PO DAILY 02/22/17 03/11/17 Tramadol HCl 50 mg PO Q6H PRN #20 tablet 02/22/17 03/11/17 Polyethylene Glycol 3350 [Miralax] 17 gm PO DAILY 03/11/17 03/11/17 Telmisartan 20 mg PO DAILY 03/11/17 03/11/17 Sertraline [Zoloft] 25 mg PO DAILY MDD for 8 days only 03/13/17 03/13/17 Sertraline [Zoloft] 50 mg PO DAILY 03/13/17 03/13/17 Lidocaine Patch 5% [Lidoderm Patch] 1 each TOP DAILY PRN #10 patch 06/21/17 Ondansetron Odt [Zofran] 4 mg TL Q6H PRN #10 tablet 06/21/17 - Allergies Allergies/Adverse Reactions: Allergies Allergy/AdvReac Type Severity Reaction Status Date / Time acetazolamide Allergy Mild Hallucinati Verified 02/22/17 10:42 [From Diamox Sequels] ons povidone-iodine Allergy Mild Rash Verified 02/22/17 10:42 [From Betadine] soap * [From Betadine] Allergy Mild Rash Verified 02/22/17 10:42 chlorhexidine Allergy Unknown Rash Verified 02/22/17 10:42 Sulfa (Sulfonamide Allergy Unknown Rash Verified 02/22/17 10:42 Antibiotics) codeine [Codeine] AdvReac Intermediate Nausea Verified 02/22/17 10:42 oxycodone AdvReac Hallucinati Verified 02/22/17 10:42 ons - Social History Does the pt smoke?: No Smoking Status: Never smoker Does the pt drink ETOH?: Yes Does the pt have substance abuse?: No - Immunizations Immunizations are current?: No Immunizations: TDAP >10years/unknown - POLST Patient has POLST: Yes POLST Status: DNR PD ED PE NORMAL - Vitals Vital signs reviewed: Yes - Neck Neck: Supple, no meningeal sign - Cardiac Cardiac: RRR - Respiratory Respiratory: No respiratory distress, Clear bilaterally - Abdomen Abdomen: Soft, Other (TTP epigastric and luq, no pulsatile mass, no rebound or guarding) - Derm Derm: Normal color Results - Vitals Vitals: Vital Signs - 24 hr 06/21/17 06/21/17 11:35 13:29 Temperature 36.1 C L 36.3 C L Heart Rate 68 62 Respiratory 18 16 Rate Blood Pressure 189/86 H 192/81 H O2 Saturation 99 100 Oxygen O2 Source [] Room air O2 Source Room air - Labs Labs: Laboratory Tests 06/21/17 06/21/17 11:50 11:50 WBC 6.9 RBC 5.24 Hgb 15.1 Hct 45.1 MCV 86.1 MCH 28.8 MCHC 33.4 RDW 15.4 H Plt Count 227 MPV 8.2 Neut # 5.7 Lymph # 0.7 L Ware # 0.3 Eos # 0.0 Baso # 0.1 Absolute Nucleated RBC 0.01 Nucleated RBC % 0.1 Sodium 134 L Potassium 4.0 Chloride 99 L Carbon Dioxide 23 Anion Gap 12.0 BUN 16 Creatinine 1.0 Estimated GFR (MDRD) 52 L Glucose 136 H Calcium 10.8 H Total Bilirubin 0.8 AST 27 ALT 20 Alkaline Phosphatase 77 Total Protein 7.5 Albumin 4.5 Globulin 3.0 Albumin/Globulin Ratio 1.5 Lipase 23 - Rads (name of study) CT AP Radiology: See rad report (no change from prior) PD MEDICAL DECISION MAKING - ED course ED course: many of the complaints are chronic (the dizziness, the R hip pain, the cemet block feeling to her foot) she has a non focal neuro exam her R hip is not red swollen tender or deformed and on CT no acute bony abn such as mets etc is seen what was new today was upper abd pain and vomtiign after taking tramadol labs fine, CT unchanged from prior, pt better after zofran will dc with rx for lido patches to try for her chronic R hip pain Departure - Departure Disposition: 01 Home, Self Care Clinical Impression: Vomiting Qualifiers: Vomiting type: unspecified Vomiting Intractability: non-intractable Nausea presence: unspecified Qualified Code(s): R11.10 - Vomiting, unspecified Adverse reaction to drug Qualifiers: Encounter type: initial encounter Qualified Code(s): T88.7XXA - Unspecified adverse effect of drug or medicament, initial encounter Condition: Good Follow-Up: Yvette Lee MD [Provider Admit Priv/Credential] - Vickey Roach DO [Primary Care Provider] - Prescriptions: Lidocaine Patch 5% [Lidoderm Patch] 1 each TOP DAILY PRN #10 patch PRN Reason: Pain Ondansetron Odt [Zofran] 4 mg TL Q6H PRN #10 tablet PRN Reason: Nausea / Vomiting Comments: Your labs are fine except for a high calcium level which is not new The CT scan does not show any new problems - you still have some sort of mass in the right abdominal wall The visualized portions of the right hip and pelvic bones seem fine It seems the vomiting today was due to taking tramadol So do not take tramadol any more Try the lidocaine patches for your hip pain. And follow up with your PMD for the more chronic ongoing problems such as the hip pain, the heavy feeling in your leg and the dizziness
[2017-06-21 11:59] LABS: BASOPHILS # (AUTO) 0.1 10^3/uL (0.0-0.1); BASOPHILS % (AUTO) 0.9 %; EOSINOPHILS % (AUTO) 0.1 %; HGB - HEMOGLOBIN 15.1 g/dL (12.0-16.0); LYMPHOCYTES # (AUTO) 0.7 10^3/uL (1.5-3.5); LYMPHOCYTES % (AUTO) 10.8 %; MEAN CORPUSCULAR HEMOGLOBIN 28.8 pg (27.0-31.0); MEAN CORPUSCULAR HGB CONC 33.4 g/dL (32.0-36.0); MEAN CORPUSCULAR VOLUME 86.1 fL (81.0-99.0); MEAN PLATELET VOLUME 8.2 fL (7.9-10.8); MONOCYTES # (AUTO) 0.3 10^3/uL (0.0-1.0); MONOCYTES % (AUTO) 5.1 %; NEUTROPHILS # (AUTO) 5.7 10^3/uL (1.5-6.6); NEUTROPHILS % (AUTO) 83.1 %; PLT - PLATELET COUNT 227 10^3/uL (130-450); RED BLOOD COUNT 5.24 10^6/uL (4.20-5.40); RED CELL DISTRIBUTION WIDTH 15.4 % (12.0-15.0); WHITE BLOOD COUNT 6.9 x10^3/uL (4.8-10.8)
[2017-06-21 12:11] LABS: ALBUMIN 4.5 g/dL (3.2-5.5); ALBUMIN/GLOBULIN RATIO 1.5 (1.0-2.2); BILIRUBIN,TOTAL 0.8 mg/dL (0.2-1.0); CALCIUM 10.8 mg/dL (8.5-10.3); TOTAL PROTEIN 7.5 g/dL (6.7-8.2)
[2017-06-21] MEDS ORDERED: FAMOTIDINE 20 MG/2 ML VIAL IVP STA (12:38)
[2017-06-21] MEDS ORDERED: ACETAMINOPHEN 325 MG TABLET PO STA (12:38)
--- NOTE | 2017-06-21 12:40 | CT Report ---
EXAM: CT ABDOMEN AND PELVIS (CT KUB) EXAM DATE: 06/21/2017 12:14 PM. CLINICAL HISTORY: Upper abd pain, hx cancer, iodine allergy. COMPARISONS: 02/22/2017. TECHNIQUE: Routine axial helical CT imaging was performed through the abdomen and pelvis without IV c ontrast. Reconstructions: Coronal and sagittal. In accordance with CT protocol optimization, one or more of the following dose reduction techniques w ere utilized for this exam: automated exposure control, adjustment of mA and/or KV based on patient s ize, or use of iterative reconstructive technique. FINDINGS: Lung Bases: Mild bibasilar atelectasis versus scarring. Small to moderate hiatal hernia. Solid Organs: Noncontrast images of the liver, spleen, pancreas, bilateral adrenal glands, and bilate ral kidneys demonstrate no significant abnormality. Gallbladder/Bile Ducts: Layering density in the gallbladder may reflect sludge. The gallbladder is ot herwise unremarkable. No evidence of biliary dilatation. Peritoneal Cavity: No bowel obstruction. Moderate stool burden throughout the colon and rectum. Moder ate diverticulosis without diverticulitis. No ascites or pneumoperitoneum. Pelvic Organs: Suboptimal evaluation secondary to streak artifact. Urinary bladder is moderately dist ended. The uterus is not visualized and may be surgically absent. Vasculature: Moderate atherosclerosis without aneurysm. Other: Status post left total hip arthroplasty. Heterogeneous, primarily fat density mass in the late ral right abdominal wall has not significantly changed compared to prior. IMPRESSION: No evidence of acute abnormality in the abdomen or pelvis. No significant change from prior allowing for differences in technique. [facility] Referring Provider Line: [phone] SITE ID: [id number]
[2017-06-21 14:33] VITALS: BP 138/92
== END 2017-06-21 14:32 | disposition home or self-care (01) ==
LOC: EDUNIT# → ED 11:28
DX: R11.2 Nausea with vomiting, unspecified (principal); T40.4X5A Adverse effect of other synthetic narcotics, initial encounter; G89.29 Other chronic pain; I10 Essential (primary) hypertension; Z85.9 Personal history of malignant neoplasm, unspecified; Z92.3 Personal history of irradiation; Z96.649 Presence of unspecified artificial hip joint; Z79.82 Long term (current) use of aspirin
CPT/HCPCS: 36415; 74176; 80053; 83690; 85025; 96361; 96374; 96375; 99284; A9270

== ENCOUNTER 2017-07-08 13:46 | Outpatient (CLI) | payer MEDICARE, OTHER ==
--- NOTE | 2017-07-08 16:35 | XRAY Report ---
SUPINE ABDOMEN: 07/08/2017 CLINICAL INDICATION: Right upper quadrant mass, chronic constipation. FINDINGS: Supine views of the abdomen demonstrate a normal bowel gas pattern. No abnormal calcification or ossification is seen in the right upper quadrant. No small bowel dilatation is present. No abnormal calcifications are seen overlying either renal shadow. IMPRESSION: NO EVIDENCE OF BOWEL OBSTRUCTION. TD: 07/08/2017 16:34
== END 2017-07-08 13:47 | disposition home or self-care (01) ==
LOC: DI 13:46
PROVIDERS: ATTEND Family Medicine
DX: R19.01 Right upper quadrant abdominal swelling, mass and lump (principal); K59.00 Constipation, unspecified
CPT/HCPCS: 74018

== ENCOUNTER 2017-09-09 15:08 | Outpatient (CLI) | payer MEDICARE, OTHER ==
[2017-09-09 18:04] LABS: CRP - C-REACTIVE PROTEIN 1.2 mg/dL (0-1.0); FERRITIN 111.2 ng/mL (11.0-306.8)
== END 2017-09-09 15:09 | disposition home or self-care (01) ==
LOC: LAB.F 15:08
PROVIDERS: ATTEND Physician Assistant
DX: E83.52 Hypercalcemia (principal); M79.1 Myalgia; L65.9 Nonscarring hair loss, unspecified
CPT/HCPCS: 36415; 82310; 82728; 83970; 85651; 86140

== ENCOUNTER 2017-11-04 08:05 | Outpatient (CLI) | payer MEDICARE, OTHER | END 2017-11-04 08:06 | disposition home or self-care (01) | LOC: LAB 08:05 | PROVIDERS: ATTEND Family Medicine | DX: R42 Dizziness and giddiness (principal); R91.8 Other nonspecific abnormal finding of lung field | CPT/HCPCS: 36415; 82951; 82952 ==

== ENCOUNTER 2017-11-20 12:03 | Outpatient (CLI) | payer MEDICARE, OTHER ==
--- NOTE | 2017-11-20 14:50 | CT Report ---
Procedure Date: 11/20/2017 Accession Number: [id number] / [id number] Procedure: CT - Head W/O CPT Code: FULL RESULT: EXAM: CT HEAD EXAM DATE: 11/20/2017 12:18 PM. CLINICAL HISTORY: DIZZY. COMPARISON: None. TECHNIQUE: Multiaxial CT images were obtained from the foramen magnum to the vertex. Reformats: Sagittal and coronal. IV contrast: None. In accordance with CT protocol optimization, one or more of the following dose reduction techniques were utilized for this exam: automated exposure control, adjustment of mA and/or KV based on patient size, or use of iterative reconstructive technique. FINDINGS: Parenchyma: No intraparenchymal hemorrhage. No evidence of mass, midline shift, or CT findings of acute infarction. Robles-white differentiation is distinct. Diffuse chronic microangiopathic white matter changes are evident. Extraaxial Spaces: Normal for age. No subdural or epidural collections identified. Ventricles: The ventricles and cortical sulci are enlarged, consistent with age-related tissue loss. Sinuses and orbits: Imaged paranasal sinuses, orbits, and mastoids show no significant abnormality. Bones: No evidence of fracture or calvarial defect. Other: None. IMPRESSION: Generalized age-related cortical atrophic changes without evidence of acute intracranial abnormality. RADIA
== END 2017-11-20 12:04 | disposition home or self-care (01) ==
LOC: DI 12:03
PROVIDERS: ATTEND Family Medicine
DX: R42 Dizziness and giddiness (principal)
CPT/HCPCS: 70450

== ENCOUNTER 2018-03-03 12:23 | Outpatient (CLI) | payer MEDICARE, OTHER ==
--- NOTE | 2018-03-03 13:45 | XRAY Report ---
Reason: UNSPECIFIED SUPERFICIAL INJURIES OF RIGHT Procedure Date: 03/03/2018 Accession Number: [id number] / [id number] Procedure: XR - Ribs Bilat w/Chest 4 View CPT Code: FULL RESULT: EXAM: BILATERAL RIB RADIOGRAPHY EXAM DATE: 03/03/2018 12:55 PM. CLINICAL HISTORY: Unspecified superficial injuries of right. COMPARISON: CHEST 2 VIEW PA/LAT 07/01/2015 12:48 PM. TECHNIQUE: 1 view of the chest and 2 views of the ribs. FINDINGS: Bones: There are multilevel degenerative changes of the thoracic spine including kyphosis which appears similar to the 2016 chest radiograph. No fracture or bone lesion. Lungs: No focal opacities. No pneumothorax. No pleural effusions. Mediastinum: Heart and mediastinal contours are stable. Other: None. IMPRESSION: No fracture is detected. RADIA
== END 2018-03-03 12:24 | disposition home or self-care (01) ==
LOC: DI 12:23
PROVIDERS: ATTEND Physician Assistant
DX: S20.301A Unspecified superficial injuries of right front wall of thorax, initial encounter (principal)
CPT/HCPCS: 71111

== ENCOUNTER 2018-05-28 09:51 | Emergency (ER) | payer MEDICARE, OTHER ==
--- NOTE | 2018-05-28 14:03 | XRAY Report ---
Reason: Fell yesterday; upper back pain Procedure Date: 05/28/2018 Accession Number: [id number] / [id number] Procedure: XR - Thoracic Spine 2 View CPT Code: FULL RESULT: EXAM: THORACIC SPINE RADIOGRAPHY EXAM DATE: 05/28/2018 01:03 PM. CLINICAL HISTORY: Fell yesterday; upper back pain. COMPARISON: RIBS BILAT W/CHEST 4 VIEW 03/03/2018 12:36 PM CHEST 2 VIEW PA/LAT 07/01/2015 12:48 PM THORACIC SPINE 3 VIEW 05/22/2014 12:57 PM THORACIC SPINE 3 VIEW 01/24/2015 1:33 PM. TECHNIQUE: 2 views. FINDINGS: Alignment: Dextroconvexity scoliosis appears similar. No spondylolisthesis or scoliosis. Bones: Evidence of diffuse osteopenia. No definite fractures or acute bone lesions. Possible slight height loss of approximately the T6 and T6 vertebral bodies is without lenny change. Stable very mild L1 inferior endplate invagination. Vertebral body heights otherwise are maintained. Partial demonstration of lower cervical anterior surgical fusion. Disks: Degenerative disk disease is without significant change. Soft Tissues: Normal. The visualized lungs and cardiomediastinal silhouette are normal. IMPRESSION: 1. No definite acute abnormality or interval change. 2. Diffuse osteopenia. 3. Degenerative disk disease redemonstrated. 4. Stable dextroconvexity thoracic scoliosis. RAD[facility]
--- NOTE | 2018-05-28 14:06 | XRAY Report ---
Reason: Fall on stairs; left hip/pelvis pain. Procedure Date: 05/28/2018 Accession Number: [id number] / [id number] Procedure: XR - Hip w/Pelvis 2-3V LT CPT Code: FULL RESULT: EXAM: LEFT HIP RADIOGRAPHY EXAM DATE: 05/28/2018 01:03 PM. CLINICAL HISTORY: Fall on stairs; left hip/pelvis pain. COMPARISON: HIP 2 VIEW LT 10/16/2013 11:18 PM. TECHNIQUE: 2 views left hip, one view pelvis. FINDINGS: Bones: Evidence of diffuse osteopenia. No definite fracture or acute bone lesion. Joints: Status post interval left hip arthroplasty with expected appearance and alignment. No dislocation. Moderate right hip degenerative disease appears progressed. Soft Tissues: Normal. No soft tissue swelling. IMPRESSION: 1. No definite acute abnormality. 2. Status post left hip arthroplasty, with expected appearance. 3. Moderate right hip degenerative disease, progressed. RAD[facility]
--- NOTE | 2018-05-28 14:09 | ED Physician Documentation ---
PD HPI Fall - Stated complaint Stated Complaint: GLF - Chief complaint Chief Complaint: Trauma Ext - History obtained from History obtained from: Patient - History of Present Illness Mechanism of injury: Tripped Fall distance: Standing position Where injury occurred: Home Timing - onset: Yesterday Injury(ies) location: Back (upper back), Other (groin) - Additional information Additional information: The patient is an 87-year-old female who was walking up stairs in her home yesterday when she tripped on the top step. Her head impacted a door at the top of the stairs, and she felt her spine go "crunch, crunch, crunch." She denies loss of consciousness or headache. She has been ambulatory since the incident occurred, and she denies nausea or vomiting. She complains of pain in her groin, and is concerned about the crunching she felt in her thoracic spine at the time. When she fell, she impacted her left hip, which is prosthetic. She has a history of kyphosis, and is status post cervical fusion. She also has a history of poor balance, and uses a quad cane to help with ambulation. Review of Systems Constitutional: denies: Fever Eyes: denies: Irritation Ears: denies: Tinnitus/ringing Nose: denies: Congestion Throat: denies: Sore throat Cardiac: denies: Chest pain / pressure Respiratory: denies: Dyspnea, Cough GI: denies: Abdominal Pain, Nausea, Vomiting : denies: Dysuria Skin: denies: Abrasion (s), Laceration (s) Musculoskeletal: reports: Back pain (Upper back.), Other (Discomfort in right groin.). denies: Neck pain Neurologic: denies: Focal weakness, Numbness, Headache, LOC PD PAST MEDICAL HISTORY - Past Medical History Past Medical History: Yes Cardiovascular: Hypertension Respiratory: Asthma GI: Colon polyps HEENT: Glaucoma, Macular degeneration Psych: Depression Musculoskeletal: Osteoarthritis, Other (Kyphosis.) Derm: None - Past Surgical History Past Surgical History: Yes General: Cholecystectomy, Appendectomy, Other Ortho: Hip replacement, Spine surgery (Cervical fusion.) /MOLDER SWEEP: Hysterectomy - Present Medications Home Medications: Ambulatory Orders Medication Instructions Recorded Confirmed Biotin 1 cap PO DAILY 12/27/15 02/23/18 Cholecalciferol (Vitamin D3) 4,000 unit PO DAILY 12/27/15 02/23/18 [Vitamin D3] Ibuprofen [Advil] 1 tab PO QPM PRN 12/27/15 02/23/18 Latanoprost 0.005% Ophth Drops 1 drop EACHEYE DAILY 12/27/15 02/23/18 [Xalatan Ophth Drops] Timolol 0.5% Ophth Drops [Timoptic 1 drop EACHEYE QID 12/27/15 02/23/18 0.5% Ophth Drops] Ondansetron [Ondansetron Odt] 8 mg PO TID PRN 11/12/16 02/23/18 Multivitamin/Iron/Folic Acid 1 tab PO DAILY 02/10/17 02/23/18 [Centrum Adults Tablet] Aspirin [Adult Low Dose Aspirin EC] 81 mg PO DAILY 02/22/17 02/23/18 Polyethylene Glycol 3350 [Miralax] 17 gm PO DAILY 03/11/17 02/23/18 Telmisartan 20 mg PO DAILY 03/11/17 02/23/18 Ondansetron Odt [Zofran] 4 mg TL Q6H PRN #10 tablet 06/21/17 02/23/18 - Allergies Allergies/Adverse Reactions: Allergies Allergy/AdvReac Type Severity Reaction Status Date / Time acetazolamide Allergy Mild Hallucinati Verified 05/28/18 10:05 [From Diamox Sequels] ons povidone-iodine Allergy Mild Rash Verified 05/28/18 10:05 [From Betadine] soap * [From Betadine] Allergy Mild Rash Verified 05/28/18 10:05 chlorhexidine Allergy Unknown Rash Verified 05/28/18 10:05 Sulfa (Sulfonamide Allergy Unknown Rash Verified 05/28/18 10:05 Antibiotics) codeine [Codeine] AdvReac Intermediate Nausea Verified 05/28/18 10:05 oxycodone AdvReac Hallucinati Verified 05/28/18 10:05 ons - Social History Does the pt smoke?: No Smoking Status: Never smoker Does the pt drink ETOH?: Yes Does the pt have substance abuse?: No - Immunizations Immunizations are current?: No Immunizations: TDAP >10years/unknown - POLST Patient has POLST: Yes POLST Status: DNR PD ED PE NORMAL - Vitals Vital signs reviewed: Yes (Systolic hypertension initially.) - General General: Alert and oriented X 3, Well developed/nourished - HEENT HEENT: Atraumatic, EOMI - Neck Neck: No bony TTP, No adenopathy, Other (The patient can turn her head from side to side without cervical tenderness.) - Cardiac Cardiac: RRR - Respiratory Respiratory: No respiratory distress, Clear bilaterally, Other (No chest wall tenderness to palpation.) - Abdomen Abdomen: Soft, Non tender - Back Back: No CVA TTP, Other (There is significant kyphosis of her thoracic spine. There is no focal tenderness to palpation.) - Derm Derm: No rash - Extremities Extremities: No tenderness to palpate, No calf tenderness / cord, Other (Both hips can be internally and externally rotated without discomfort.) - Neuro Neuro: Alert and oriented X 3, No motor deficit, No sensory deficit Results - Vitals Vitals: Oxygen O2 Source [] Room air O2 Source Room air - Rads (name of study) Thoracic spine Radiology: Prelim report reviewed, EMP read contemporaneously, See rad report (No definite acute abnormality or interval change. Diffuse osteopenia. Degenerative disc disease redemonstrated. Stable dextroconvexity thoracic scoliosis.) Left hip Radiology: Prelim report reviewed, EMP read indepedently, EMP read contemporaneously (1) No definite acute abnormality. 2) Status post left hip arthroplasty, with expected appearance. 3) Moderate right hip degenerative disease, progressed.) PD MEDICAL DECISION MAKING - ED course Complexity details: reviewed results, re-evaluated patient, considered differential, d/w patient, d/w family ED course: The patient's presentation is significant for strain of her thoracic spine caused by a fall that occurred yesterday. There is no acute fracture noted on radiographic imaging of the thoracic spine. X-ray of the left hip also reveals no acute findings. I discussed with the patient and her female tray server the results of the imaging studies, expected course of injury, symptomatic treatment and outpatient follow-up, as well as potentially worrisome signs or symptoms that should prompt reevaluation in the emergency department. Departure - Departure Disposition: 01 Home, Self Care Clinical Impression: Fall Qualifiers: Encounter type: initial encounter Qualified Code(s): W19.XXXA - Unspecified fall, initial encounter Back strain Qualifiers: Encounter type: initial encounter Qualified Code(s): S39.012A - Strain of muscle, fascia and tendon of lower back, initial encounter Condition: Stable Instructions: ED Mechanical Fall, ED Neck Back Pain General Follow-Up: Vickey Roach DO [Provider Admit Priv/Credential] - Comments: You can use Tylenol or ibuprofen as needed for pain or discomfort. Let pain be your guide to activity level. Follow-up with your primary physician if not improving within 1-2 weeks. Return to the emergency department if you develop significantly increasing pain, or otherwise worsening symptoms. Discharge Date/Time: 05/28/18 14:25
[2018-05-28 14:22] VITALS: BP 197/85
== END 2018-05-28 14:25 | disposition home or self-care (01) ==
LOC: ED 09:51
DX: S29.012A Strain of muscle and tendon of back wall of thorax, initial encounter (principal); W01.198A Fall on same level from slipping, tripping and stumbling with subsequent striking against other object, initial encounter; Y93.01 Activity, walking, marching and hiking; Y92.009 Unspecified place in unspecified non-institutional (private) residence as the place of occurrence of the external cause; I10 Essential (primary) hypertension; Z96.649 Presence of unspecified artificial hip joint; Z79.82 Long term (current) use of aspirin
CPT/HCPCS: 72070; 99282; 99283

== ENCOUNTER 2018-08-11 13:04 | Outpatient (CLI) | payer MEDICARE, OTHER ==
[2018-08-11 13:37] LABS: BILIRUBIN,URINE NEGATIVE (NEGATIVE); GLUCOSE, URINE (UA) NEGATIVE (NEGATIVE); KETONES,URINE (UA) NEGATIVE (NEGATIVE); LEUKOCYTE ESTERASE, URINE TRACE (NEGATIVE); NITRITE,URINE NEGATIVE (NEGATIVE); OCCULT BLOOD,URINE NEGATIVE (NEGATIVE); PH,URINE 6.5 PH (5.0-7.5); PROTEIN,URINE NEGATIVE (NEGATIVE); UROBILINOGEN,URINE 0.2 (NORMAL) E.U./dL (NORMAL)
[2018-08-11 14:00] LABS: BACTERIA,URINE Rare /HPF (None Seen); CLARITY,URINE CLEAR (CLEAR); RBC,URINE 0-5 /HPF (0-5); SQUAMOUS EPITHELIAL CELL,UR RARE Squamous (<= Few)
== END 2018-08-11 13:05 | disposition home or self-care (01) ==
LOC: LAB 13:04
PROVIDERS: ATTEND Physician Assistant
DX: R32 Unspecified urinary incontinence (principal)
CPT/HCPCS: 81001; 81003; 87086

== ENCOUNTER 2018-11-05 11:52 | Outpatient (CLI) | payer MEDICARE, OTHER ==
--- NOTE | 2018-11-05 22:45 | XRAY Report ---
Reason: PAIN IN RIGHT KNEE Procedure Date: 11/05/2018 Accession Number: [id number] / [id number] Procedure: XR - Knee 3 View RT CPT Code: FULL RESULT: EXAM: RIGHT KNEE RADIOGRAPHY EXAM DATE: 11/05/2018 12:09 PM. CLINICAL HISTORY: PAIN IN RIGHT KNEE. COMPARISON: KNEE 3 VIEW BILAT 11/24/2014 1:03 PM. TECHNIQUE: 3 views. FINDINGS: Bones: No acute fractures or suspicious bone lesions. Joints: No effusion. No subluxations. Joint spaces are preserved. Osteophyte formation of the lateral and patellofemoral compartments. Soft Tissues: Unremarkable. IMPRESSION: No acute radiographic abnormalities. Stable, mild to moderate osteoarthritis of the lateral and patellofemoral compartments. [facility]
== END 2018-11-05 11:53 | disposition home or self-care (01) ==
LOC: DI 11:52
PROVIDERS: ATTEND Family Medicine
DX: M17.11 Unilateral primary osteoarthritis, right knee (principal); R53.1 Weakness